=== PATIENT | female | born 2000 | race Caucasian/White ===

== ENCOUNTER 2025-01-17 14:03 | Emergency (ER) | payer BC, SELFPAY ==
[2025-01-17 15:17] VITALS: BP 155/82; PULSE 103; RESP 16; TEMP 36.8; O2SAT 99; BMI 25.1
--- NOTE | 2025-01-17 15:17 | ED_ITS ---
HPI - General Adult General Chief complaint: Dental/Oral Stated complaint: General Medical Time Seen by Provider: 01/17/25 17:32 Source: patient Mode of arrival: ambulatory Limitations: no limitations History of Present Illness ED Provider: Dr. Blackman [facility] narrative: This is a 24-year-old female presented hospital today for a swollen left tonsil. Patient has noticed some discoloration over the left tonsil. Denies any sore throat. [facility]. Patient was advised to come to the ER from the [facility]. Related Data Previous Rx's ?Medication ?Instructions ?Recorded amoxicillin 400 mg/5 mL oral 500 mg (6.25 mL) PO BID 1 0 days 01/17/25 suspension #125 mL Allergies Allergy/AdvReac Type Severity Reaction Status Date / Time No Known Allergies Allergy Verified 01/17/25 15:20 Review of Systems 2 Review of Systems: Pertinent review of systems as mentioned in HPI. All other system otherwise negative. PMFSH Past Medical History PMF Narrative: Medical history as mentioned in [facility] Social History Social History Advance Directives: No Advance Directives Information Provided: No Physical Exam ED Exam Exam: General: Pleasant, no distress, interacting appropriately Head: Normacephalic, atraumatic ENT: Swelling of the left tonsil with a some exudate. Suspicious for possible strep infection. No signs of uvula deviation low suspicion for peritonsillar abscess. No sign of stridor Neurological: Awake and alert, no facial droop noted Skin: Warm and dry Psychiatric: Appropriate mood and thoughts Vital Signs: Vital Signs - 24 hr 01/17/25 15:17 01/17/25 17:02 01/17/25 18:12 Temperature 98.2 F 98.3 F 98.3 F Pulse Rate 103 H 107 H 107 H Respiratory Rate 16 16 16 Blood Pressure 155/82 H 152/96 H 152/96 H Pulse Oximetry 99 100 100 Oxygen Delivery Method Room Air Room Air Room Air BMI result Body Mass Index 25.1 Course Course Course Narrative: This is a rapid medical exam performed by Kathe Mueller NP: Additional HPI, ROS, PE not included below will be deferred to primary provider. Patient is a 24y/o F referred to the ED for evaluation of left tonsillar swelling. Patient reports 1 week of congestion, denies ever really having a sore throat. Denies any difficulty breathing, swallowing or opening/closing jaw. Significant L sided tonsillar edema with exudate. Tested negative for strep and mono at urgent care. Plan: labs Medications Administered Discontinued Medications Generic Name Dose Route Start Last Admin Trade Name Dara PRN Reason Stop Dose Admin Amoxicillin 500 mg 01/17/25 17:35 01/17/25 17:56 Amoxicillin Oral Susp 400 Mg/5 Ml 75 Ml Susp.Recon PO 01/17/25 17:36 500 mg ONCE ONE Administration Medical Decision Making Medical Decision Making [facility] Narrative: This is a 24-year-old female presented hospital today for a left tonsil swelling with exudates. I suspect patient likely has tonsillitis on exam. No sign of airway compromise at this time. We will plan to give patient a dose of amoxicillin here. We will discharge patient on oral amoxicillin to go home with. Patient agrees and understands this plan. Referral to primary care doctor will be provided the patient as well. Patient will be discharged. return precautions provided. [place] screen is negative. Strep swab is negative here. Differential Diagnosis Differential Diagnoses: The differential diagnosis associated with the presentation includes Tonsillitis, strep infection, pharyngitis Lab Data [facility] Lab Attestation statement: I reviewed the patient's lab results. 01/17/25 15:29 01/17/25 15:29 Labs: Lab Results 01/17/25 01/17/25 Range/Units 15:29 17:07 WBC 11.4 H (4.8-10.8) X10*3/uL RBC 5.42 (4.20-5.50) X10*6/uL Hgb 14.3 (12.0-16.0) g/dl Hct 44.3 (37.0-47.0) % MCV 81.7 (80.0-98.0) fL MCH 26.4 L (27.0-33.0) pg MCHC 32.3 (31.0-35.0) g/dl RDW 12.7 (11.0-16.0) % Plt Count 420 H (160-400) X10*3/uL MPV 11.3 (9.4-12.3) fL Immature Gran % (Auto) 0.3 (0.0-0.4) % Neut % (Auto) 75.2 H (45-73) % Lymph % (Auto) 18.9 L (20-40) % [place] % (Auto) 4.0 (2-11) % Eos % (Auto) 0.9 (0-4) % Baso % (Auto) 0.7 (0-2) % Lymph # (Auto) 2.2 (1.2-4.9) X10*3/uL [place] # (Auto) 0.5 (0.1-1.2) X10*3/uL Eos # (Auto) 0.1 (0.0-0.4) X10*3/uL Baso # (Auto) 0.1 (0.0-0.2) X10*3/uL Abs Immat Gran (auto) 0.03 (0.00-0.03) X10*3/uL Absolute Neuts (auto) 8.6 H (2.0-8.3) x10*3/uL Absolute Nucleated RBC 0.000 (0.0-0.012) X10*3/uL Nucleated RBC % (auto) 0.0 (0.0-0.2) /100WBC Sodium 141 (135-145) mmol/L Potassium 4.2 (3.3-5.1) mmol/L Chloride 106 (96-108) mmol/L Carbon Dioxide 25 (22-29) mmol/L Anion Gap 14 (12-20) BUN 5 L (9-16) mg/dL Creatinine 0.69 (0.5-1.4) mg/dL Estim Creat Clear Calc 122.2 Estimated GFR > 60 Random Glucose 116 H (60-115) mg/dL Calcium 10.4 H (8.4-10.2) mg/dL Total Bilirubin 0.3 (0.0-1.0) mg/dL AST 21 (5-31) U/L ALT 14 (0-31) U/L Alkaline Phosphatase 74 (39-117) U/L Total Protein 8.8 H (6.5-8.0) g/dL Albumin 4.9 (3.5-5.0) g/dL Beta HCG, Quant < 2 mIU/mL COVID-19 (CYNTHIA) Negative (Negative) COVID-19 Clin Com See Note Monoscreen Negative (Negative) Influenza Type A (MARINA) Negative (Negative) Influenza Type B (MARINA) Negative (Negative) Influenza A & B Note See Note S. pyogenes GrpA MARINA Negative (Negative) Discharge Plan Discharge Clinical Impression: Acute tonsillitis Qualifiers: Pharyngitis/tonsillitis etiology: streptococcus Streptococcal tonsillitis recurrence: not specified as recurrent or not Qualified Code(s): J03.00 - Acute streptococcal tonsillitis, unspecified Patient Disposition: Home, Self-Care Instructions: Tonsillitis (ED) Prescriptions: New amoxicillin 400 mg/5 mL suspension for reconstitution 500 mg PO BID 10 Days Qty: 125 0RF Referrals: [facility] [place] [facility] [Provider Group, Internal Medicine] Interventions: ED Discharge Assessment Last Done: 01/17/25 18:12 Discharge Date/Time: 01/17/25 18:12 Print Language: Faroese
[2025-01-17 15:33] LABS: MANUAL DIFF FLAG NO
[2025-01-17 15:38] LABS: Hematocrit 44.3 % (37.0-47.0); Hemoglobin 14.3 g/dl (12.0-16.0); Imm Gran Abs Auto 0.03 X10*3/uL (0.00-0.03); Imm Gran Pct Auto 0.3 % (0.0-0.4); Lymphocytes Absolute Auto 2.2 X10*3/uL (1.2-4.9); Mean Corpuscular HGB Conc 32.3 g/dl (31.0-35.0); Mean Corpuscular Hemoglobin 26.4 pg (27.0-33.0); Mean Corpuscular Volume 81.7 fL (80.0-98.0); NRBC Abs Auto 0.000 X10*3/uL (0.0-0.012); NRBC Pct Auto 0.0 /100WBC (0.0-0.2); Platelet Count 420 X10*3/uL (160-400); Red Blood Count 5.42 X10*6/uL (4.20-5.50); White Blood Count 11.4 X10*3/uL (4.8-10.8)
[2025-01-17 15:54] LABS: Alanine Aminotransferase 14 U/L (0-31); Albumin Level 4.9 g/dL (3.5-5.0); Alkaline Phosphatase 74 U/L (39-117); Anion Gap 14 (12-20); Aspartate Amino Transferase 21 U/L (5-31); Blood Urea Nitrogen 5 mg/dL (9-16); Calcium 10.4 mg/dL (8.4-10.2); Carbon Dioxide 25 mmol/L (22-29); Chloride 106 mmol/L (96-108); Creatinine Clr Calc Pharmacy 122.2; Estimated Glomerular Filt Rate > 60; Potassium 4.2 mmol/L (3.3-5.1); Sodium 141 mmol/L (135-145); Total Protein 8.8 g/dL (6.5-8.0)
[2025-01-17 17:02] VITALS: BP 152/96; PULSE 107; RESP 16; TEMP 36.8; O2SAT 100
[2025-01-17 17:24] LABS: IDNOW Serial# 08D9AD1C; Strep A Nucleic Acid Negative (Negative)
[2025-01-17 17:30] LABS: COVID-19 Test Negative (Negative); IDNOW Serial# 55D5AD1C
[2025-01-17 17:31] LABS: IDNOW Serial# 58CA691E; Influenza B2 Negative (Negative)
[2025-01-17] MEDS: Amoxicillin Oral Susp 400 mg/5 mL 75 mL SUSP.RECON 500 MG PO (17:56)
[2025-01-17 18:12] VITALS: BP 152/96; PULSE 107; RESP 16; TEMP 36.8; O2SAT 100
== END 2025-01-17 18:12 | disposition home or self-care (01) ==
PROVIDERS: Registered Nurse Emergency; Emergency Provider Student in an Organized Health Care Education/Training Program
DX: J03.00 Acute streptococcal tonsillitis, unspecified (principal); Z03.818 Encounter for observation for suspected exposure to other biological agents ruled out
CPT/HCPCS: 36415; 80053; 84702; 85025; 86308; 87502; 87635; 87651; 99283